=== PATIENT | female | born 1955 | race Two or more races ===

== ENCOUNTER 2025-09-03 07:34 | Emergency (ER) | payer MEDICAID, SELFPAY ==
[2025-09-03 07:44] VITALS: BP 149/77; PULSE 119; RESP 18; TEMP 36.8; O2SAT 95
[2025-09-03 07:51] VITALS: BMI 35.5
--- NOTE | 2025-09-03 08:02 | PD.EDRME ---
Rapid Medical Screening Exam RME Arrival date/time: 09/03/25 07:34 Chief Complaint: Skin/Abscess/Foreign Body Vital signs: Vital Signs Temperature 98.2 F 09/03/25 07:44 Pulse Rate 119 H 09/03/25 07:44 Respiratory Rate 18 09/03/25 07:44 Blood Pressure 149/77 H 09/03/25 07:44 Pulse Oximetry (%) 95 09/03/25 07:44 Oxygen Delivery Method Room Air 09/03/25 07:44 Vital signs reviewed by provider: Yes RME Narrative: 70-year-old female presents to the ER complaining of nonhealing right upper back wound x 1 month after her PMD performed an I&D and gave her some antibiotics which she completed the course of 3 weeks ago. I briefly performed a screening evaluation to initiate work-up and expedite care. Complete history, physical exam, and plan of care is deferred to the provider in the main ED.
--- NOTE | 2025-09-03 08:08 | EDNOTE_ITS ---
<Statement entered by Rut Olivier MD - 09/03/25 09:57> As co-signing physician, I was present and evaluated patient with Resident. Wound per family is slowing getting smaller with daily dressing changes at home. Looking at the ound, at about the 3 o'clock position, there is small amount of thick whitish material consistent with sebaceous material, as well as very small amount of purulent material expressed. Consistent with likely sebaceous cyst that had become infected, opened, and drained. Appearance of the wound now does not appear acutely infected - is open which allows drainage. Discussed wound care for home as well as potential follow up with surgeon in the future if this were to recur for removal of cyst. I concur with the plan and care as documented by the Resident ED General RME/HPI General Chief complaint: Skin/Abscess/Foreign Body Stated complaint: ACNE LOOKING ABSCESS ON BACK FOR 1 MONTH Time Seen by Provider: 09/03/25 08:07 Arrival date/time: 09/03/25 07:34 RME / HPI RME / HPI narrative: Rolando is a 70 y/o female with PMHx obesity who comes in for evaluation of a slowly healing wound located on her mid right thoracic spine, 3 x 2 cm, with no associated fever or chills, has been draining serous fluid but no pus or blood. Patient reports she is unsure how she got this wound, however about a month ago it had started draining on its own and she was to get evaluated at the doctor. Since it had already been draining, they proceeded with wound care and she completed a prescription of antibiotics, amoxicillin in which she took as prescribed. She says since then they have been continuing with wound care every day and that has been closing slowly on its own. They deny any pus or blood being drained from the wound. She has never had this before. She says it is n ot tender to touch and denies any fever or chills. She is wondering if she is going to get an antibiotic for it. She has not seen wound care or a general surgeon for this. No other complaints at this time. Related Data Previous Rx's ?Medication ?Instructions ?Recorded amoxicillin 500 mg capsule 500 mg PO TID #30 caps 12/11 ascorbic acid (vitamin C) 500 mg 500 mg PO BID 2 weeks #28 tabs 09/03/25 tablet multivitamin 1 tab PO QDAY 2 weeks #14 ta bs 09/03/25 zinc sulfate 50 mg zinc (220 mg) 50 mg PO QDAY #14 tab s 09/03/25 tablet Allergies Allergy/AdvReac Type Severity Reaction Status Date / Time No Known Allergies Allergy Verified 09/03/25 07:40 Review of Systems Review of Systems Narrative Review of Systems: 12 point ROS reviewed and is otherwise negative unless stated directly in the HPI ED Exam Narrative Physical exam: General: AAOx3, NAD, obese female HEENT: Moist mucous membranes, conjunctiva clear, EOMI, PERRLA, Cardiovascular: S1, S2, radial pulses +2 bilat, RRR Pulmonary: CTAB bilat no cough, no wheezing GI: No tenderness to light or deep palpitation, no guarding, rigidity, rebound tenderness or distension Back: 3x2 open wound, draining serous fluid, upon cleaning of wound, white discharge coming from wound, not TTP, not warm to touch Extremities: No presence of trace or pitting edema in lower extremities bilaterally, dorsalis pedis pulses +2 bilaterally Neuro: AAOx3, no focal motor or sensory deficits in the UE or LE bilat Psych: Good judgement, thought and behavior Course Quality Measures none Orders Category Date Time Status CBC Stat Lab 09/03/25 09:58 Ordered CMP [Comprehensive Metabolic Panel] Stat Lab 09/03/25 08:05 Ordered Vital Signs Vital signs: Vital Signs Temperature 98.2 F 09/03/25 07:44 Pulse Rate 119 H 09/03/25 07:44 Respiratory Rate 18 09/03/25 07:44 Blood Pressure 149/77 H 09/03/25 07:44 Pulse Oximetry (%) 95 09/03/25 07:44 Oxygen Delivery Method Room Air 09/03/25 07:44 Discharge Plan Plan Patient Disposition: HOME (Self Care) Patient condition on transfer: Stable Prescriptions/Referrals Prescriptions/Med Rec: New zinc sulfate 50 mg zinc (220 mg) tablet 50 mg PO QDAY Qty: 14 0RF Rx Instructions: Take one tablet by mouth every day multivitamin Tablet 1 tab PO QDAY 14 Days Qty: 14 0RF Rx Instructions: Take one tablet by mouth every day ascorbic acid (vitamin C) 500 mg tablet 500 mg PO BID 14 Days Qty: 28 0RF Rx Instructions: Take one tablet by mouth twice a day No Action amoxicillin 500 mg capsule 500 mg PO TID Qty: 30 0RF Referrals: Dave Torre [Physician, Wound Care] - In 1 week Fabby Tracey MD [Primary Care Provider] - In 1 week Amy Olguin MD [Physician, General Surgery] - In 1 week Problem List Clinical Impression: Abscess of skin or subcutaneous tissue Patient/Caregiver Discharge Instructions Discharge Activity: activity as tolerated Education Materials: Changing Dressing Dc, Wound Care Dc, Wound Dressing Change Steps Additional Instructions: Discharge instructions Follow-up with your PCP within 1 week I am prescribing you with Vitamins: A multivitamin, Zinc and Vitamin C. Take as prescribed I am referring you to wound care. You may need your primary care doctor to send a referral to you. I am referring you to a general surgeon. You may need your primary care doctor to send a referral to you. This is primarily for if your wound does not continue to heal. Speak with your PCP in regards to this. Continue with wound care as we discussed. Utilize clean dressings, gauze, and packings If you begin to develop a fever, please return to the ER. Return to ED if your symptoms worsen or return Descargar instrucciones Consulte con calderon m?dico de cabecera en tiago semana. Le estoy recetando vitaminas: un multivitam?nadia, zinc y vitamina C. T?melas seg?n lo prescrito. Le estoy derivando a un centro de cuidado de heridas. Es posible que calderon m?dico de cabecera le env?e tiago derivaci?n. Le estoy derivando a un cirujano general. Es posible que calderon m?dico de cabecera le env?e tiago derivaci?n. [place] es principalmente para casos en los que calderon herida no cicatriza. Hable con calderon m?dico de cabecera al respecto. Contin?e con el cuidado de la herida omid lo comentamos. Use ap?sitos, gasas y compresas limpias. Si empieza a tener fiebre, regrese a urgencias. Regrese a urgencias si kike s?ntomas empeoran o reaparecen. Print Language: Tajik Stand Alone Forms: [employer] Award Info., Patient Portal Info Letter MDM Narrative MDM hospital course (for use when minimal MDM required): 905: After wound care of patient's wound which including cleaning and pus drainage of wound, dressing was applied to wound. At this time, this is likely related to chronic wound that needs daily wound care for proper closure that will improve over time. This wound could of represented a cyst, however since it is improving at this time, pt will need close monitoring of this. If the wound continues to reaccumulate, patient will likely need evaluation by general surgeon for further intervention. Patient will need continuous wound care for proper closure. We will also refer her to wound care and a general surgeon however, she may need a referral from her primary care doctor. She is tachycardic at this time but appears to be regular. She will not need antibiotic at this time, however will give her wound healing supplements as well upon discharge. Diagnosis Diagnoses ruled out and/or further discussions: Chronic wound, cyst, healing abscess, cellulitis
[2025-09-03 09:16] LABS: Basophils # (Auto) 0.0 Thou/mm3 (0.0-0.2); Basophils % (Auto) 1 % (0-2.5); Eosinophils # (Auto) 0.0 Thou/mm3 (0.0-0.5); Eosinophils % (Auto) 0 % (0-10); Hematocrit 24.8 % (36.0-46.0); Immature Granulocytes Auto 0.03 Thou/mm3 (0.00-0.00); Lymphocytes # (Auto) 0.8 Thou/mm3 (1.0-4.8); Lymphocytes % (Auto) 12 % (10-50); Mean Corpuscular HGB Conc 31.5 g/dl (31.0-37.0); Mean Corpuscular Hemoglobin 28.6 pg (25.0-35.0); Mean Corpuscular Volume 91 fL (80-100); Monocytes # (Auto) 1.0 Thou/mm3 (0.0-0.8); Monocytes % (Auto) 17 % (0-12); Neutrophils # (Auto) 4.3 Thou/mm3 (1.8-7.7); Neutrophils % (Auto) 70 % (37-80); Nucleated Red Blood Cell # 0.00 Thou/mm3 (0.00-0.00); Nucleated Red Blood Cell % 0 /100 WBC (0); Platelet Count 185 Thou/mm3 (140-440); RDW Standard Deviation 66.7 fL (36.4-46.3); Red Blood Count 2.73 Miln/mm3 (4.00-5.20); White Blood Count 6.1 Thou/mm3 (3.6-11.0)
[2025-09-03 09:26] LABS: Hemoglobin 7.8 g/dL (12.0-16.0)
[2025-09-03 09:30] LABS: Alanine Aminotransferase 18 U/L (10-49); Albumin, Serum 3.5 gm/dL (3.4-4.8); Albumin/Globulin Ratio 1.2 (1.2-2.2); Alkaline Phosphatase 118 U/L (46-116); Anion Gap 12 (7-16); Aspartate Amino Transferase 29 U/L (0-34); BUN/Creatinine Ratio 17 Ratio (12-20); Bilirubin,Total 1.7 mg/dL (0.3-1.2); Blood Urea Nitrogen 10 mg/dL (9-23); Calcium 8.9 mg/dL (8.3-10.6); Calcium (Corrected) 9.3 mg/dL (8.5-10.1); Carbon Dioxide 25.5 mMol/L (20.0-31.0); Chloride 98 mMol/L (98-107); Creatinine (Component) 0.6 mg/dL (0.6-1.3); Estimated Creatinine Clearance 88.7 mL/min (>60); Globulin 3.0 gm/dL (2.3-3.5); Glucose 236 mg/dL (74-106); Osmolality,Calculated 277 (275-295); Potassium 3.8 mMol/L (3.4-5.1); Sodium 135 mMol/L (136-145); Total Protein 6.5 gm/dL (5.7-8.2); eGFR > 60 See Note
== END 2025-09-03 10:08 | disposition home or self-care (01) ==
PROVIDERS: Physician Assistant; PCP Family Medicine
DX: L02.212 Cutaneous abscess of back [any part, except buttock and flank] (principal); E66.9 Obesity, unspecified
CPT/HCPCS: 36415; 80053; 85025; 99283

== ENCOUNTER 2025-09-18 13:25 | Emergency (ER) | payer MEDICAID, SELFPAY ==
[2025-09-18 13:28] VITALS: BMI 38.0
[2025-09-18 13:39] VITALS: BP 152/83; PULSE 109; RESP 20; TEMP 36.7; O2SAT 96
--- NOTE | 2025-09-18 13:44 | XR_ITS ---
EXAMINATION: AP lateral chest 2 views TECHNIQUE: Upright AP lateral chest 2 views Date and time: September 18, 2025, 1402 hours INDICATIONS: Chest pain beginning today. FINDINGS: Normal heart size Lungs are clear. The osseous factors are intact IMPRESSION: No active disease
--- NOTE | 2025-09-18 13:44 | PD.EDRME ---
Rapid Medical Screening Exam [facility] Arrival date/time: 09/18/25 13:25 70-year-old female with no known medical history presents to the emergency room with a chief complaint of bilateral lower extremity swelling and left upper arm swelling x 6 days I have greeted and performed a focused initial assessment of this patient. A comprehensive ED assessment and evaluation of the patient, analysis of all test results, and completion of the medical decision making process will be conducted by additional ED providers. Chief Complaint: Extremity Problem,Nontraumatic Time Seen by Provider: 09/18/25 13:39 Vital signs: Vital Signs Temperature 98.0 F 09/18/25 13:39 Pulse Rate 109 H 09/18/25 13:39 Respiratory Rate 20 09/18/25 13:39 Blood Pressure 152/83 H 09/18/25 13:39 Pulse Oximetry (%) 96 09/18/25 13:39 Oxygen Delivery Method Room Air 09/18/25 13:39 Vital signs reviewed by provider: No Exam: Bilateral +2 pitting edema to the lower extremities +2 pitting edema to the upper left extremity Clear bilateral lung sounds Strong and regular rhythm S1 and S2 noted Clinical Impression: Congestive heart failure/renal failure/bilateral lower edema
[2025-09-18 14:08] LABS: Basophils # (Auto) 0.0 Thou/mm3 (0.0-0.2); Basophils % (Auto) 1 % (0-2.5); Eosinophils # (Auto) 0.0 Thou/mm3 (0.0-0.5); Eosinophils % (Auto) 0 % (0-10); Hematocrit 25.7 % (36.0-46.0); Immature Granulocytes Auto 0.03 Thou/mm3 (0.00-0.00); Lymphocytes # (Auto) 0.8 Thou/mm3 (1.0-4.8); Lymphocytes % (Auto) 15 % (10-50); Mean Corpuscular HGB Conc 30.0 g/dl (31.0-37.0); Mean Corpuscular Hemoglobin 28.4 pg (25.0-35.0); Mean Corpuscular Volume 95 fL (80-100); Monocytes # (Auto) 1.0 Thou/mm3 (0.0-0.8); Monocytes % (Auto) 20 % (0-12); Neutrophils # (Auto) 3.2 Thou/mm3 (1.8-7.7); Neutrophils % (Auto) 64 % (37-80); Nucleated Red Blood Cell # 0.00 Thou/mm3 (0.00-0.00); Nucleated Red Blood Cell % 0 /100 WBC (0); Platelet Count 170 Thou/mm3 (140-440); RDW Standard Deviation 70.2 fL (36.4-46.3); Red Blood Count 2.71 Miln/mm3 (4.00-5.20); White Blood Count 5.0 Thou/mm3 (3.6-11.0)
[2025-09-18 14:09] LABS: Hemoglobin 7.7 g/dL (12.0-16.0)
[2025-09-18 14:23] LABS: INR 1.3 (0.9-1.3); Partial Thromboplastin Time 27.7 Seconds (22.0-36.0); Prothrombin Time 13.5 Seconds (9.0-12.2)
[2025-09-18 14:27] LABS: Alanine Aminotransferase 12 U/L (10-49); Albumin, Serum 3.4 gm/dL (3.4-4.8); Albumin/Globulin Ratio 1.1 (1.2-2.2); Alkaline Phosphatase 140 U/L (46-116); Anion Gap 12 (7-16); Aspartate Amino Transferase 27 U/L (0-34); BUN/Creatinine Ratio 13 Ratio (12-20); Bilirubin,Total 1.5 mg/dL (0.3-1.2); Blood Urea Nitrogen 10 mg/dL (9-23); Calcium 8.9 mg/dL (8.3-10.6); Calcium (Corrected) 9.4 mg/dL (8.5-10.1); Carbon Dioxide 26.3 mMol/L (20.0-31.0); Chloride 96 mMol/L (98-107); Creatinine (Component) 0.8 mg/dL (0.6-1.3); Estimated Creatinine Clearance 63.8 mL/min (>60); Globulin 3.0 gm/dL (2.3-3.5); Glucose 325 mg/dL (74-106); Magnesium 1.8 mg/dL (1.6-2.6); Osmolality,Calculated 280 (275-295); Potassium 3.3 mMol/L (3.4-5.1); Sodium 134 mMol/L (136-145); Total Protein 6.4 gm/dL (5.7-8.2); Troponin I < 0.002 ng/mL (0.0-0.045); eGFR > 60 See Note
[2025-09-18 14:34] LABS: B-Type Natriuretic Peptide 125 pg/mL (0-100)
--- NOTE | 2025-09-18 16:44 | PD.EDADULT ---
ED General RME/HPI General Chief complaint: Extremity Problem,Nontraumatic Stated complaint: LEFT ARM SWELLING x 5-6 DAYS, WAS ON ANTIBIOTIC Time Seen by Provider: 09/18/25 13:39 Arrival date/time: 09/18/25 13:25 Limitations: no limitations RME / HPI RME / HPI narrative: 09/18/25 13:25 70-year-old female with no known medical history presents to the emergency room with a chief complaint of bilateral lower extremity swelling and left upper arm swelling x 6 days I have greeted and performed a focused initial assessment of this patient. A comprehensive ED assessment and evaluation of the patient, analysis of all test results, and completion of the medical decision making process will be conducted by additional ED providers. DR. YI MAIN ED EVALUATION: 70 year old female with no stated medical history presents to the ED for evaluation of left arm swelling beginning 5 days ago. Not associated with pain. Additionally complains of bilateral leg weakness. Denies any history of similar arm swelling. Patients daughter mentioned 1 week ago the patient was evaluated here for a bump on her back that was treated. State the patient at that time was also started on a multivitamin, Vitamin C, and Zinc. Denies any fevers, chills, sweats, shortness of breath, chest pain. Exam: Bilateral +2 pitting edema to the lower extremities +2 pitting edema to the upper left extremity Clear bilateral lung sounds Strong and regular rhythm S1 and S2 noted Impression: Congestive heart failure/renal failure/bilateral lower edema Related Data Previous Rx's ?Medication ?Instructions ?Recorded amoxicillin 500 mg capsule 500 mg PO TID #30 caps 10/23/19 zinc sulfate 50 mg zinc (220 mg) 50 mg PO QDAY #14 tabs 09/03/25 tablet Allergies Allergy/AdvReac Type Severity Reaction Status Date / Time No Known Allergies Allergy Verified 09/18/25 13:29 Review of Systems Review of Systems Systems Reviewed: All systems reviewed, normal except as documented Past Medical History Social History SMOKING STATUS: Never smoker ED Exam General Limitations: Present no limitations General appearance: Present alert and in no apparent distress Head Head exam: Present atraumatic, normocephalic and normal inspection Eye Eye exam: Present normal appearance, PERRL and EOMI ENT ENT exam: Present normal exam, normal oropharynx and mucous membranes moist Neck Neck exam: Present normal inspection, full ROM and trachea midline Chest Chest inspection: Present normal inspection and symmetric chest wall rise Respiratory Respiratory exam: Present normal lung sounds bilaterally Cardiovascular Cardiovascular exam: Present regular rate, normal rhythm and normal heart sounds Abdominal Exam Abdominal exam: Present soft and normal bowel sounds Extremities Exam Extremities exam: Present other (Left upper extremity with 2-3+ edema to left arm forearm and hand, the hand edema is pitting ) Back Exam Back exam: Present normal inspection and full ROM Neurological Exam Neurological exam: Present alert, oriented X3 and CN II-XII intact Psychiatric Psychiatric exam: Present normal affect and normal mood Skin Skin exam: Present warm, dry, intact and normal color Course Quality Measures none Orders Category Date Time Status EKG (ED ONLY) *Do not use* NOW Care 09/18/25 13:44 Completed EKG (ED Only) Stat Exams 09/18/25 13:44 Ordered US venous doppler UE LT Stat Exams 09/18/25 16:52 Completed XR chest 2V Stat Exams 09/18/25 13:44 Completed B-Type Natriuretic Peptide Stat Lab 09/18/25 13:57 Completed CBC Stat Lab 09/18/25 13:57 Completed Comprehensive Metabolic Panel Stat Lab 09/18/25 13:57 Completed Magnesium Stat Lab 09/18/25 13:57 Completed Partial Thromboplastin Time Stat Lab 09/18/25 13:57 Completed Prothrombin Time with INR Stat Lab 09/18/25 13:57 Completed Troponin I Stat Lab 09/18/25 13:57 Completed Urinalysis, C/S if Indicated Stat Lab 09/18/25 16:43 Completed Urine Culture Stat Lab 09/18/25 16:43 Received Vital Signs Vital signs: Vital Signs Temperature 98.0 F 09/18/25 13:39 Pulse Rate 109 H 09/18/25 13:39 Respiratory Rate 20 09/18/25 13:39 Blood Pressure 152/83 H 09/18/25 13:39 Pulse Oximetry (%) 96 09/18/25 13:39 Oxygen Delivery Method Room Air 09/18/25 13:39 Pulse ox is 96% on room air which is adequate. Discharge Plan Prescriptions/Referrals Prescriptions/Med Rec: No Action amoxicillin 500 mg capsule 500 mg PO TID Qty: 30 0RF zinc sulfate 50 mg zinc (220 mg) tablet 50 mg PO QDAY Qty: 14 0RF Rx Instructions: Take one tablet by mouth every day Referrals: Ismael Tracey MD [Primary Care Provider, Family Practice] - In 1 week Problem List Clinical Impression: Left upper extremity swelling, Anemia Patient/Caregiver Discharge Instructions Print Language: Icelandic MDM Narrative Sign Out note: 1800: Patient signed out to Dr. Banks pending ultrasound and final disposition. [facility] hospital course (for use when minimal MDM required): Monica Beckett am scribing for and in the presence of Dr. Yi. Clinical Information Provided by: patient Medical Records reviewed [facility] Meds/Rx considered, not ordered None Labs/Rad/Tests considered, not ordered None Chronic Illness/Social Conditions which may negatively complicate care or outcome(s)-explain: None or not applicable Labs Labs: interpreted by me Imaging Imaging interpretation: interpreted by me Imaging Interpretation(s): Ordering Physician: Seevro Antoine Date of Service: 09/18/25 Procedure(s): XR chest 2V Accession Number(s): [id number] cc: Severo Antoine; Eliel Szymanski MD~ EXAMINATION: AP lateral chest 2 views TECHNIQUE: Upright AP lateral chest 2 views Date and time: September 18, 2025, 1402 hours INDICATIONS: Chest pain beginning today. FINDINGS: Normal heart size Lungs are clear. The osseous factors are intact IMPRESSION: No active disease Dictated By: Eliel Szymanski MD Signed By: <Electronically signed by Eliel Szymanski MD in OV> 09/18/25 1417 Diagnosis Diagnoses ruled out and/or further discussions: Left upper extremity swelling Anemia
--- NOTE | 2025-09-18 16:52 | XR_ITS ---
Examination: Duplex scan of the upper extremity, unilateral left Date and time of exam: September 18, 2025, 1714 hours INDICATIONS: Severe arm swelling and pain Technique: Duplex scan of the extremity veins using B-mode/grayscale imaging and Doppler spectral analysis and color flow Attention is directed to internal echogenicity, compression and augmentation involving these veins, color flow assessment, spectral analysis Findings: Positive for nonocclusive thrombus involving the distal brachial vein Positive for nonocclusive thrombus involving the superficial basilic vein Incidental note multiple left cervical lymph nodes lateral to the jugular vein, the largest 24 x 25 mm IMPRESSION: Positive for nonocclusive acute thrombus involving the distal brachial vein Positive for nonocclusive thrombus involving the superficial basilic vein Significant left cervical lymphadenopathy, consider CT soft tissue neck post intravenous contrast follow-up
[2025-09-18 16:58] LABS: Collection Type, Urine Clean Catch
[2025-09-18 17:14] LABS: Bacteria,Urine 1+; Bilirubin,Urine Negative (Negative); Blood,Urine Negative (Negative); Color,Urine Yellow (Lt Yel-Yel); Glucose, Urine 4+ (Negative); Ketones,Urine Negative (Negative); Leukocyte Esterase,Urine Positive (Negative); Nitrite,Urine Negative (Negative); PH,Urine 6.5 (5.0-7.0); Protein,Urine Trace (Neg - Trace); RBC,Urine 10 /hpf (0-3); Specific Gravity,Urine 1.028 (1.001-1.035); Squamous Epithelial Cell,Urine 10 /hpf (0-5); Urobilinogen,Urine 8.0 mg/dL (0.0-1.0); WBC,Urine 55 /hpf (0-5)
[2025-09-18 17:15] LABS: Culture Indicated,Urine Yes
[2025-09-18 17:16] LABS: Clarity,Urine Hazy (Clear/Hazy)
--- NOTE | 2025-09-18 18:58 | EDNOTE_ITS ---
Emergency Room Addendum Addendum Narrative: 1800: Care assumed from Dr. Kirkland (emergency physician). Past medical, surgical, social and family history reviewed. Vitals and home medications reviewed. Results and treatment plan discussed. I will assume the care of the patient at this time and will follow the patient, pending venous doppler US. The following addendum documentation note is intended to reflect any pending information, findings, or radiology results not included in the patient?s ini tial chart by the previous shift scribe. RADIOLOGY Venous Doppler Study: Findings: Positive for nonocclusive thrombus involving the distal brachial vein Positive for nonocclusive thrombus involving the superficial basilic vein Incidental note multiple left cervical lymph nodes lateral to the jugular vein, the largest 24 x 25 mm IMPRESSION: Positive for nonocclusive acute thrombus involving the distal brachial vein Positive for nonocclusive thrombus involving the superficial basilic vein Significant left cervical lymphadenopathy, consider CT soft tissue neck post intravenous contrast follow-up Soft Tissue Neck CT: Findings: The films are not centered properly Symmetrical nasopharynx oropharynx Bilateral carotid triangle lymph nodes, the largest on the left side 15 mm Symmetrical submandibular glands The larynx appears normal Thyroid lobes are not enlarged Normal epiglottis Multiple supraclavicular lymph nodes on the left, the largest 17 mm IMPRESSION: Bilateral quadrangle lymph nodes, the largest on the left side 15 mm Multiple left supraclavicular lymph nodes, the largest 17 mm Chest CTA: Findings: Mass of left axillary lymphadenopathy Diffuse increased density in the left breast with edema and skin thickening, possible architectural distortion left breast, suspicious for 22 mm nodule left breast image 35 No thoracic aortic aneurysm dilatation Pulmonary artery segments are not enlarged. No paratracheal or tracheobronchial or bronchopulmonary adenopathy No pneumonia, pulmonary edema, pleural disease or pulmonary nodules Gallbladder wall appears mildly thickened No visualized liver lesion or pancreatic mass Moderate thoracic spondylosis IMPRESSION: Prominent left axillary adenopathy Diffuse increased density in the left breast with edema and possible architectural distortion, and skin thickening Suspicious for 22 mm nodule left breast Recommend diagnostic mammography and bilateral breast sonography follow-up 19:35 - Assumed care of this pleasant 70 y/o female presenting with aggressive LUE swelling for approximately 24 hours duration with generalized weakness/fatigue. No antecedent fever, chills, vomiting, or diarrhea. Laboratory markers demonstrate normal WBC. Patient with chronic anemia with hemoglobin of 7.7, normal platelet count, with no left shift or associated bandemia. Serum chemistries demonstrate slightly low Potassium of 3.3, mildly elevated Total bilirubin of 125, and BNP of 125. UA with equivocal evidence of UTI. Special studies include LUE DVT studies non-occlusive thrombus of both brachial and basilic veins. Patient also noted to have significant left cervical lymphadenopathy. These findings discussed with patient as Eliquis was initiated. Will obtain a soft tissue cervical CT and include chest CT with contrast. 22:28 - Soft tissue cervical CT and chest CT with contrast demonstrate multiple supraclavicular lymphadenopathy and presence left breast mass highly suggestive of breast CA with coagulopathy. Will continue Eliquis and refer to PHYSICAL THERAPY PROFESSOR for mammography vs MRI to further delineate left breast mass. I have spoken with the patient and discussed today?s findings, in addition to providing specific details for the plan of care. Questions are answered and there is an agreement with the plan. Re-assessment at the time of disposition demonstrates that the patient is in no acute distress. The patient has remained stable throughout the entire ED visit and is without objective evidence for acute process requiring urgent intervention or hospitalization. The patient is stable for discharge; counseling is provided and documented as above, discussed symptomatic treatment and specific conditions for return.
--- NOTE | 2025-09-18 19:24 | XR_ITS ---
Examination: CT soft tissue neck, with intravenous contrast. 2-D coronal reconstructions. 2-D sagittal reconstructions. Date and time of exam : September 18, 2025, 2026 hours INDICATIONS: Left arm swelling and pain this week., Marked abnormal axillary lymphadenopathy CTDI: vol (mGy): 16.2 DLP: (mGycm): 302 Technique: 1.25 mm axial sections of the neck of the obtained. Coronal and sagittal reconstructions have been obtained. Intravenous contrast administered 60 cc Isovue-370. Low dose protocols were performed. One or more of the following dose reduction techniques were used; automated exposure control, adjustment of the mA and/or KV according to patient size, use of iterative reconstruction technique. Findings: The films are not centered properly Symmetrical nasopharynx oropharynx Bilateral carotid triangle lymph nodes, the largest on the left side 15 mm Symmetrical submandibular glands The larynx appears normal Thyroid lobes are not enlarged Normal epiglottis Multiple supraclavicular lymph nodes on the left, the largest 17 mm IMPRESSION: Bilateral quadrangle lymph nodes, the largest on the left side 15 mm Multiple left supraclavicular lymph nodes, the largest 17 mm
--- NOTE | 2025-09-18 19:27 | XR_ITS ---
Examination: CT chest with intravenous contrast 2-D sagittal and coronal reconstructions Exam date and time: September 18, 2025, 2036 hours INDICATIONS: Left arm swelling and pain this week CTDI:vol (mGy) 33.0 DLP: (mGycm) 1027 Technique: Multiple axial sections of the thorax have been obtained. Sections have been obtained, 3 mm slice thickness. Mediastinal and lung density settings have been obtained. Intravenous contrast administered, 60 cc Isovue-370. 2-D sagittal, coronal images obtained. Low dose protocols were performed. One or more of the following dose reduction techniques were used; automated exposure control, adjustment of the mA and/or KV according to patient size, use of iterative reconstruction technique. Findings: Mass of left axillary lymphadenopathy Diffuse increased density in the left breast with edema and skin thickening, possible architectural distortion left breast, suspicious for 22 mm nodule left breast image 35 No thoracic aortic aneurysm dilatation Pulmonary artery segments are not enlarged. No paratracheal or tracheobronchial or bronchopulmonary adenopathy No pneumonia, pulmonary edema, pleural disease or pulmonary nodules Gallbladder wall appears mildly thickened No visualized liver lesion or pancreatic mass Moderate thoracic spondylosis IMPRESSION: Prominent left axillary adenopathy Diffuse increased density in the left breast with edema and possible architectural distortion, and skin thickening Suspicious for 22 mm nodule left breast Recommend diagnostic mammography and bilateral breast sonography follow-up
[2025-09-18 19:32] VITALS: BP 159/81; PULSE 130; RESP 19; TEMP 37.3; O2SAT 98
[2025-09-18] MEDS: APIXABAN 2.5 MG TABLET 10 MG PO (20:35)
[2025-09-18 23:02] VITALS: BP 150/79; PULSE 99; RESP 19; TEMP 37.3; O2SAT 98
== END 2025-09-18 23:03 | disposition home or self-care (01) ==
PROVIDERS: Nurse Practitioner Family; Emergency Provider Emergency Medicine; PCP Family Medicine
DX: R59.0 Localized enlarged lymph nodes (principal); D64.9 Anemia, unspecified; E87.6 Hypokalemia; N39.0 Urinary tract infection, site not specified
CPT/HCPCS: 36415; 70491; 71046; 71260; 80053; 81001; 83735; 83880; 84484; 85025; 85610; 85730; 87086; 93005; 93971; 99283; A4649; Q9967; A9270

== ENCOUNTER 2025-10-25 15:25 | Emergency (ER) | payer MEDICAID, SELFPAY ==
[2025-10-25] VITALS (11 sets, daily range): BP systolic 100–147; BP diastolic 62–80; PULSE 97–176; RESP 19–30; TEMP 36.6–40.3; O2SAT 93–99; BMI 33.9
--- NOTE | 2025-10-25 15:56 | EKG_ITS ---
[facility] Test Date: 2025-10-25 Pat Name: ANTOINETTE HURT Department: Room: - Gender: Female Professional Benefits Sales Consultant: : 1955 Requested By: Bridget Acosta Order Number: [id number] Reading MD: Bridget Acosta Measurements Intervals Warren Rate: 155 P: 56 PA: 102 QRS: 12 QRSD: 81 T: 26 QT: 276 QTc: 444 Interpretive Statements SINUS TACHYCARDIA WITH SHORT PA INTERVAL WITH OCCASIONAL SUPRAVENTRICULAR PREMATURE COMPLEXES, POSSIBLE ATRIAL FLUTTER NONSPECIFIC ST & T-WAVE ABNORMALITY CRITICAL TEST RESULT No previous ECG available for comparison /store/S0/[id number]/ecg/[id number].pdf
--- NOTE | 2025-10-25 15:59 | XR_ITS ---
EXAMINATION: AP chest single view TECHNIQUE: AP portable semiupright chest single view Date and time: October 25, 2025, 1625 hours, comparison September 18, 2025 INDICATION: Chest pain today. FINDINGS: No significant cardiac enlargement taking into account AP portable projection Ectatic thoracic aorta No lobar pneumonia or pulmonary edema Moderate osteopenia IMPRESSION: No pneumonia or pulmonary edema
--- NOTE | 2025-10-25 16:17 | EDNOTE_ITS ---
Altered Mental Status RME/HPI General Chief Complaint: Altered Mental Status Stated Complaint: AMS Time Seen by Provider: 10/25/25 16:02 Arrival date/time: 10/25/25 15:25 RME / HPI RME / HPI narrative: 70 year old female presents to the ED BIBA from home for altered mental status today. Per medics, family on scene reported the patient was last known well at 13:45 hours today. Medics report patient is tachycardic in the 110s and hot to touch, saturating 98% on 4L nasal cannula. In the ED, patient is unable to provide any additional history due to mental status. Related Data Previous Rx's ?Medication ?Instructions ?Recorded amoxicillin 500 mg capsule 500 mg PO TID #30 caps 12/11 zinc sulfate 50 mg zinc (220 mg) 50 mg PO QDAY #14 tab s 09/03/25 tablet acetaminophen 300 mg-codeine 15 mg 1 tab PO Q8H PRN pa in #14 tabs 09/18/25 tablet apixaban 5 mg (74 tabs) tablets in 5 mg PO BID #74 tab s 09/18/25 a dose pack (Eliquis DVT-PE Treat 30D Start) Allergies Allergy/AdvReac Type Severity Reaction Status Date / Time No Known Allergies Allergy Verified 09/18/25 13:29 Review of Systems Review of Systems ROS Unobtainable: unobtainable due to mental status Past Medical History Past Medical History CARDIAC: Negative Cardiac Disorders RESPIRATORY: Negative Asthma GENITOURINARY: Negative Renal Disease ENDOCRINE: Negative Diabetes Mellitus Type 2 HEMATOLOGIC: Negative Sickle Cell Disease Social History SMOKING STATUS: Unknown if ever smoked ED Exam Narrative Physical exam: GENERAL APPEARANCE: Mildly altered, well-developed, well-nourished HEENT: Normocephalic, atraumatic; pupils equal, round, reactive to light; EOMI; mucous membranes pink, moist; oropharynx clear NECK: Supple LUNGS: CTABL; no wheezes, no rales, no rhonchi HEART: Regular rate, regular rhythm; normal S1, S2; no murmurs ABDOMEN: non distended; normal BS; soft, no tenderness, no guarding, no rebound; no masses, no organomegaly, no hernia EXTREMITIES: atraumatic; no edema NEUROLOGIC: mildly altered, cranial nerves II-XII grossly intact SKIN: Increased warmth, diaphoretic, normal color; no rashes Course Quality Measures Current suspected stage: septic shock (LA >4 and/or hypotension) Sepsis reassessment completed at (date): 10/25/25 Sepsis reassessment completed at (time): 17:00 Possible source: genitourinary Blood cultures ordered: completed in ED Antibiotic ordered: Yes Pertinent labs: 10/25/25 10/25/25 10/25/25 16:23 19:10 22:43 Lactic Acid 4.9 H* mMol/L 2.8 H mMol/L 2.4 H mMol/L (0.4-2.0) (0.4-2.0) (0.4-2.0) Procalcitonin 5.91 H ng/ml (0.0-0.49) sepsis Orders Category Date Time Status CT Screening NOW Care 10/25/25 17:58 Completed Cutting Machine Tender Decorative NOW Care 10/25/25 15:59 Completed EKG (ED ONLY) *Do not use* NOW Care 10/25/25 15:[address] abdomen pelvis w con Stat Exams 10/25/25 17:[address] head/brain wo con Stat Exams 10/25/25 16:35 Completed EKG (ED Only) Stat Exams 10/25/25 15:56 Draft US abdomen limited Stat Exams 10/25/25 17:50 Completed XR chest 1V portable Stat Exams 10/25/25 15:59 Completed B-Type Natriuretic Peptide Stat Lab 10/25/25 16:23 Completed Blood Culture (Lab) Stat Lab 10/25/25 16:17 Completed CBC Stat Lab 10/25/25 16:23 Completed Comprehensive Metabolic Panel Stat Lab 10/25/25 16:23 Completed Hepatitis Acute Panel Stat Lab 10/25/25 16:23 Completed Lactate (Lactic Acid) Stat Lab 10/25/25 16:23 Completed Lactic Acid [Lactate (Lactic Acid)] Stat Lab 10/25/25 19:10 Completed Lactic Acid, 3 HR Stat Lab 10/25/25 22:43 Completed Lipase Stat Lab 10/25/25 16:23 Completed Magnesium Stat Lab 10/25/25 16:23 Completed Partial Thromboplastin Time Stat Lab 10/25/25 16:23 Completed Procalcitonin Stat Lab 10/25/25 16:23 Completed Prothrombin Time with INR Stat Lab 10/25/25 16:23 Completed Troponin I Stat Lab 10/25/25 16:23 Completed Troponin I Stat Lab 10/25/25 19:10 Completed Troponin I Stat Lab 10/25/25 21:14 Completed Urinalysis Stat Lab 10/25/25 15:40 Completed Urine Culture Stat Lab 10/25/25 15:40 Completed Acetaminophen Ivpb [Ofirmev Inj] Med 10/25/25 15:59 Discontinued 1,000 mg in 100 ml IV X1 Cefepime Inj [Maxipime Inj] 2 gm Med 10/25/25 18:47 Discontinued SODIUM CHLORIDE 0.9% (Popper) [Ns 0.9% (P)] 50 ml IV X1 Sodium Chloride 0.9% 1000 ml [Ns] 1,000 ml Med 10/25/25 15:59 Discontinued IV 999 mls/hr Sodium Chloride 0.9% 1000 ml [Ns] 1,000 ml Med 10/25/25 18:01 Discontinued IV 999 mls/hr cefTRIAXone/D5w 1gm IV premix [Rocephin/D5w 1gm IV Med 10/25/25 17:49 Discontinued premix] 1 gm in 50 ml IV X1 metroNIDAZOLE/NS 500 MG IVPB [Flagyl 500 mg IV] Med 10/25/25 18:47 Discontinued 500 mg in 100 ml IV X1 Vital Signs Vital signs: Vital Signs Temperature 103.2 F H 10/25/25 15:26 Pulse Rate 160 H 10/25/25 15:26 Respiratory Rate 22 H 10/25/25 15:26 Blood Pressure 130/80 10/25/25 15:26 Pulse Oximetry (%) 93 L 10/25/25 15:26 Oxygen Delivery Method Room Air 10/25/25 15:26 Altered Mental Status MDM Narrative MDM Narrative:: 1800p: Care signed out to Dr. Medina pending GB US and final disposition. Patient data External records reviewed:: [facility] previous records and EMS form Clinical information provided by:: EMS Social determinants that could affect healthcare access:: none Patient has the following chronic illnesses:: Obesity How is presenting disease/condition affected by chronic disease/condition?: uneffected by Evaluation data The following diagnostics were reviewed and interpreted by me:: lab results and radiology exam(s) Lab and/or radiology exams considered but not ordered:: None Interpretation Summary: Ordering Physician: Bridget Gudino MD Date of Service: 10/25/25 Procedure(s): XR chest 1V portable Accession Number(s): [id number] cc: Eliel Szymanski MD; NO PRIMARY/FAMILY,PHYSICIAN; Bridget Gudino MD~ EXAMINATION: AP chest single view TECHNIQUE: AP portable semiupright chest single view Date and time: October 25, 2025, 1625 hours, comparison September 18, 2025 INDICATION: Chest pain today. FINDINGS: No significant cardiac enlargement taking into account AP portable projection Ectatic thoracic aorta No lobar pneumonia or pulmonary edema Moderate osteopenia IMPRESSION: No pneumonia or pulmonary edema Dictated By: Eliel Szymanski MD Signed By: <Electronically signed by Eliel Szymanski MD in OV> 10/25/25 1723 Ordering Physician: Bridget Gudino MD Date of Service: 10/25/25 Procedure(s): CT head/brain wo con Accession Number(s): [id number] cc: Eliel Szymanski MD; NO PRIMARY/FAMILY,PHYSICIAN; Bridget Gudino MD~ Examination: CT brain head without contrast. 2-D sagittal coronal reconstructions Date and time of exam: October 25, 2025, 1709 hours INDICATIONS: Onset altered mental status today CTDI: vol (mGy): 49.7 DLP: (mGycm): 936 Technique: Multiple CT axial sections of the brain have been obtained, 5 mm slice thickness. Contrast has not been administered. 2-D sagittal, coronal reconstructions have been obtained Low dose protocols were performed. One or more of the following dose reduction techniques were used; automated exposure control, adjustment of the mA and/or KV according to patient size, use of iterative reconstruction technique. Findings: No significant ventricular enlargement. 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 No mass effect or midline shift Basal cisterns are not remarkable. Fourth ventricle is midline. Cranial vault intact. Impression: Negative for acute hemorrhage, mass effect or midline shift Advise clinical correlation and follow-up accordingly Dictated By: Eliel Szymanski MD Signed By: <Electronically signed by Eliel Szymanski MD in OV> 10/25/25 1727 Medications / Prescriptions Medications or Prescriptions considered but not ordered:: none Medication administrations:: Medication Administration History Discontinued Medications Sodium Chloride (Ns) 1,000 mls @ 999 mls/hr IV .Q1H1M ONE Stop: 10/25/25 16:59 Last Infusion: 10/25/25 18:00 Dose: Infused Documented By: Admin: 10/25/25 16:23 Dose: 999 mls/hr Documented By: FELICIANO Acetaminophen (Ofirmev Inj) 1,000 mg in 100 mls @ 250 mls/hr IV X1 ONE Stop: 10/25/25 16:22 Last Infusion: 10/25/25 17:59 Dose: Infused Documented By: Admin: 10/25/25 16:22 Dose: 250 mls/hr Documented By: FELICIANO Ceftriaxone Sodium/Dextrose (Rocephin/D5w 1gm Iv Premix) 1 gm in 50 mls @ 100 mls/hr IV X1 ONE Stop: 10/25/25 18:18 Last Infusion: 10/25/25 19:55 Dose: Infused Documented By: Admin: 10/25/25 18:35 Dose: 100 mls/hr Documented By: FELICIANO Sodium Chloride (Ns) 1,000 mls @ 999 mls/hr IV .Q1H1M ONE Stop: 10/25/25 19:01 Last Infusion: 10/25/25 19:56 Dose: Infused Documented By: Admin: 10/25/25 18:36 Dose: 999 mls/hr Documented By: FELICIANO Cefepime HCl 2 gm/ Sodium (Chloride) 50 mls @ 100 mls/hr IV X1 ONE Stop: 10/25/25 19:16 Last Infusion: 10/25/25 20:29 Dose: Infused Documented By: Admin: 10/25/25 19:54 Dose: 100 mls/hr Documented By: MELISSA Metronidazole (Flagyl 500 Mg Iv) 500 mg in 100 mls @ 200 mls/hr IV X1 ONE Stop: 10/25/25 19:16 Last Infusion: 10/25/25 20:30 Dose: Infused Documented By: Admin: 10/25/25 20:00 Dose: 200 mls/hr Documented By: MELISSA see above Consultations Consultation(s) initiated? (list below): No Diagnosis Most likely diagnosis given after review of the tests above:: Sepsis AMS Admission Indicated Admission indicated?: not indicated Explain why admission is indicated or not indicated:: signed out pending final dispo Admission Request Was there a request for admission?: No Disposition Plan Disposition Plan: other (specify) (signed out pending final dispo ) Discharge Plan Prescriptions/Referrals Prescriptions/Med Rec: No Action amoxicillin 500 mg capsule 500 mg PO TID Qty: 30 0RF Eliquis DVT-PE Treat 30D Start 5 mg (74 tabs) tablets,dose pack 5 mg PO BID Qty: 74 0RF Rx Instructions: Sick 2 tablets twice daily for for 7 days then 1 tablet twice daily for remainder of pack. acetaminophen-codeine 300-15 mg tablet 1 tab PO Q8H MDD 3 tab PRN (Reason: pain) Qty: 14 0RF zinc sulfate 50 mg zinc (220 mg) tablet 50 mg PO QDAY Qty: 14 0RF Rx Instructions: Take one tablet by mouth every day Referrals: No Primary/Family,Physician [Primary Care Provider] - In 1 week Problem List Clinical Impression: Altered mental status, Sepsis Patient/Caregiver Discharge Instructions Print Language: Slovenian
[2025-10-25] MEDS: ACETAMINOPHEN IVPB 1,000 MG/100 ML VIAL 250 MG IV (16:22)
[2025-10-25] MEDS: SODIUM CHLORIDE 0.9% 1000 ML 1,000 ML 999 ML IV ×2 (16:23→18:36)
[2025-10-25 16:26] LABS: Collection Type, Urine Catheter; Squamous Epithelial Cell,Urine 0 /hpf (0-5)
[2025-10-25 16:35] LABS: Basophils # (Auto) 0.0 Thou/mm3 (0.0-0.2); Basophils % (Auto) 0 % (0-2.5); Eosinophils # (Auto) 0.0 Thou/mm3 (0.0-0.5); Eosinophils % (Auto) 0 % (0-10); Hematocrit 23.9 % (36.0-46.0); Immature Granulocytes Auto 0.08 Thou/mm3 (0.00-0.00); Lymphocytes # (Auto) 0.8 Thou/mm3 (1.0-4.8); Lymphocytes % (Auto) 9 % (10-50); Mean Corpuscular HGB Conc 30.5 g/dl (31.0-37.0); Mean Corpuscular Hemoglobin 30.0 pg (25.0-35.0); Mean Corpuscular Volume 98 fL (80-100); Monocytes # (Auto) 0.6 Thou/mm3 (0.0-0.8); Monocytes % (Auto) 7 % (0-12); Neutrophils # (Auto) 7.4 Thou/mm3 (1.8-7.7); Neutrophils % (Auto) 83 % (37-80); Nucleated Red Blood Cell # 0.11 Thou/mm3 (0.00-0.00); Nucleated Red Blood Cell % 1 /100 WBC (0); Platelet Count 111 Thou/mm3 (140-440); RDW Standard Deviation 76.1 fL (36.4-46.3); Red Blood Count 2.43 Miln/mm3 (4.00-5.20); White Blood Count 8.9 Thou/mm3 (3.6-11.0)
--- NOTE | 2025-10-25 16:35 | XR_ITS ---
Examination: CT brain head without contrast. 2-D sagittal coronal reconstructions Date and time of exam: October 25, 2025, 1709 hours INDICATIONS: Onset altered mental status today CTDI: vol (mGy): 49.7 DLP: (mGycm): 936 Technique: Multiple CT axial sections of the brain have been obtained, 5 mm slice thickness. Contrast has not been administered. 2-D sagittal, coronal reconstructions have been obtained Low dose protocols were performed. One or more of the following dose reduction techniques were used; automated exposure control, adjustment of the mA and/or KV according to patient size, use of iterative reconstruction technique. Findings: No significant ventricular enlargement. 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 No mass effect or midline shift Basal cisterns are not remarkable. Fourth ventricle is midline. Cranial vault intact. Impression: Negative for acute hemorrhage, mass effect or midline shift Advise clinical correlation and follow-up accordingly
[2025-10-25 16:42] LABS: Bacteria,Urine 4+; Bilirubin,Urine 1+ (Negative); Blood,Urine Negative (Negative); Color,Urine Yellow (Lt Yel-Yel); Glucose, Urine Negative (Negative); Hyaline Casts,Urine 2 /hpf (0-1); Ketones,Urine Negative (Negative); Leukocyte Esterase,Urine Positive (Negative); Nitrite,Urine Positive (Negative); PH,Urine 6.5 (5.0-7.0); Protein,Urine 1+ (Neg - Trace); RBC,Urine 2 /hpf (0-3); Specific Gravity,Urine 1.015 (1.001-1.035); Urobilinogen,Urine 8.0 mg/dL (0.0-1.0); WBC,Urine 29 /hpf (0-5)
[2025-10-25 16:45] LABS: INR 1.5 (0.9-1.3); Partial Thromboplastin Time 32.1 Seconds (22.0-36.0); Prothrombin Time 15.1 Seconds (9.0-12.2)
[2025-10-25 16:48] LABS: B-Type Natriuretic Peptide 101 pg/mL (0-100)
[2025-10-25 16:59] LABS: Lactate (Lactic Acid) 4.9 mMol/L (0.4-2.0)
[2025-10-25 17:00] LABS: Alanine Aminotransferase 35 U/L (10-49); Albumin, Serum 2.9 gm/dL (3.4-4.8); Albumin/Globulin Ratio 1.0 (1.2-2.2); Alkaline Phosphatase 733 U/L (46-116); Anion Gap 13 (7-16); Aspartate Amino Transferase 174 U/L (0-34); BUN/Creatinine Ratio 18 Ratio (12-20); Bilirubin,Total 3.5 mg/dL (0.3-1.2); Blood Urea Nitrogen 11 mg/dL (9-23); Calcium 8.8 mg/dL (8.3-10.6); Calcium (Corrected) 9.7 mg/dL (8.5-10.1); Carbon Dioxide 24.3 mMol/L (20.0-31.0); Chloride 99 mMol/L (98-107); Creatinine (Component) 0.6 mg/dL (0.6-1.3); Globulin 2.9 gm/dL (2.3-3.5); Glucose 183 mg/dL (74-106); Lipase 39 U/L (12-53); Magnesium 1.7 mg/dL (1.6-2.6); Osmolality,Calculated 276 (275-295); Potassium 3.2 mMol/L (3.4-5.1); Procalcitonin 5.91 ng/ml (0.0-0.49); Sodium 136 mMol/L (136-145); Total Protein 5.8 gm/dL (5.7-8.2); eGFR > 60 See Note
[2025-10-25 17:12] LABS: Troponin I 0.051 ng/mL (0.0-0.045)
[2025-10-25 17:19] LABS: Clarity,Urine Hazy (Clear/Hazy)
[2025-10-25 17:19] LABS: Hemoglobin 7.3 g/dL (12.0-16.0)
--- NOTE | 2025-10-25 17:50 | XR_ITS ---
Examination: Abdomen sonogram, Limited Date and time of exam: October 25, 2025, 1820 hours INDICATIONS: Right upper abdominal pain beginning 2 days ago, elevated liver function test on laboratory examination today. Technique: Real-time marc scale transabdominal sonographic images of the upper abdomen obtained. Findings: Gallbladder sludge Gallbladder wall 0.51 cm with edema Common bile duct enlarged 0.8 cm no stones Pancreatic head 2.1 cm Liver 15.8 cm fatty infiltration Normal hepatopetal portal venous flow Patent IVC IMPRESSION: Findings consistent with acute acalculous cholecystitis, consider MRCP follow-up
--- NOTE | 2025-10-25 17:58 | XR_ITS ---
Examination: CT abdomen with intravenous contrast CT pelvis with intravenous contrast 2-D coronal reconstructions 2-D sagittal reconstructions Date and time of exam: October 25, 2025, 1919 hours INDICATIONS: Generalized abdominal pain today. CTDI: vol (mGy) 11.3 DLP: (mGycm) 635 Technique: Multiple axial sections of the abdomen and pelvis have been obtained. 64 slice high-resolution scanner used. 3 mm axial sections have been obtained, post intravenous injection 60 cc [id number] 2-D sagittal, coronal reconstructions obtained. Low dose protocols were performed. One or more of the following dose reduction techniques were used; automated exposure control, adjustment of the mA and/or KV according to patient size, use of iterative reconstruction technique. Findings: No focal liver or splenic lesions Gallbladder wall appears thickened No pancreatic or adrenal mass No renal or ureteral calculi Aorta is not enlarged Multiple left lateral para-aortic lymph nodes, the largest 14 mm Normal appendix No bowel obstruction or diverticulitis Multiple right common iliac internal iliac external iliac lymph nodes, the largest 3.3 cm and 2.5 cm Right common femoral lymph node mass 10 cm with adjacent multiple lymph node masses Atrophic retroverted uterus with abnormally thickened endometrial stripe measuring up to 13 mm Severe osteopenia IMPRESSION: Acute acalculous cholecystitis Extensive pathologic abdominal and right pelvic lymphadenopathy, differential would include metastatic lymphadenopathy, Hodgkin's disease, non-Hodgkin's lymphoma, amenable to CT-guided percutaneous biopsy Abnormal thickening of the endometrial stripe, differential would include malignant neoplasm of the endometrium, recommend MRI pelvis follow-up pre and postcontrast
[2025-10-25] MEDS: cefTRIAXone/D5w 1gm IV premix 1 GM/50 ML BAG IV (18:35)
--- NOTE | 2025-10-25 18:39 | PD.EDADDENDU ---
Emergency Room Addendum <Damian Vallejo MD - Last Filed: 10/25/25 19:26> Addendum Narrative: HPI: 70-year-old female with past medical history of left breast mass, pulmonary nodules, left arm blood clot on Eliquis presenting to the ED on 10/25 with altered mental status and high fevers. History largely taken from patient's daughter who is bedside and states that the patient unfortunately has never had a screening colonoscopy or mammograms in the past. On August she presented to the ED where the blood clot in her left arm was seen; she was started on Eliquis. She was seen by her PCP who sent her to a vascular/vein specialist due to left arm swelling and not improving. Patient denies any alcohol use but apparently earlier today started to develop some altered mental status and did not appear well. Her skin color has also been changing progressively turning more yellow. On assessment, patient is awake answering questions appropriately in Albanian. Her vitals have improved since presenting with a blood pressure 114/67 but steadily dropping, heart rate continues to be tachycardic at 108, respiratory 24, afebrile after receiving Tylenol 1000 mg. She is severely jaundiced and has conjunctival pallor. Heart and lung sounds largely unremarkable, abdominal exam notable for distention, organomegaly noted but patient denies having any abdominal tenderness on deep palpation, borborygmi apparent. Left upper extremity is grossly swollen compared to right the patient is able to ambulate extremities and there is good cap refill, less than 2 seconds. Lower extremities without any edema, cyanosis dorsalis pedis pulses +2 bilaterally. Laboratory workup confirms cholestatic process with elevated LFTs, T. bili Naldo 3.5 with AST 174, ALT 35, alk phos severely elevated 733. CBC does not show any white count elevation but patient is severely anemic with a hemoglobin of 7.3, thrombocytopenia with platelet of 111, lactic acid of 4.9, troponin 0.051. Urinalysis does show signs of infection with 4+ bacteria, positive leukocyte esterase and nitrites. Hepatitis panel ordered to rule out any acute hepatitis. Chest x-ray is largely negative, head CT is also negative secondary to the altered mental status and abdominal ultrasound does show acute acalculous cholecystitis with a common bile duct that is enlarged at 0.8 cm with no well-visualized stones. Differentials at this time include: Sepsis secondary to, urinary tract infection superimposed, acalculous cholecystitis, cholangitis, possible underlying malignancy including breast mass, pulmonary nodules Differentials for anemia include: Iron deficiency anemia, DIC, acute on chronic blood loss anemia on Eliquis, anemia of chronic disease due to liver disease, vitamin deficiency including folate or B12 #Sepsis secondary to urinary tract infection #L calculous cholecystitis #Concern for cholangitis #Anemia As stated above patient has sepsis secondary to UTI plus or minus high probability of cholangitis secondary to enlarged common bile duct, elevated T bilirubin and altered mental status Plan: Covering with broad-spectrum antibiotics, cefepime 2 g and Flagyl 500 mg IV fluid resuscitation Follow-up with acute hepatitis panel Follow-up on concerning lab findings including troponin, lactic acid CT abdomen pelvis with contrast ordered Attempted transfer to patient for ERCP Patient seen and assessed with attending Dr. Sun Vallejo DO PGY-2 Internal Medicine - GME Attestation <Yana Medina MD - Last Filed: 10/25/25 18:57> MD Attestation Patient was signed out to me at approximately 1900. Please see Dr. Montelongo's note for full history and physical exam and complete workup. This is a 70-year-old female who presents to the emergency department with temperature at home x 1 day. The patient has a history of CHF, and in the emergency department has a temperature of 103.2. Respiratory rate is 22. Pulse initially on arrival was 160. Sepsis reevaluation: At 1800 the patient has a blood pressure of 147/66, pulse of 109. Respirations of 25. Temperature of 104.6. Temp is 97. The patient otherwise is awake alert and talking in full sentences. Abdomen is soft nontender nondistended. Lungs are clear bilaterally. Patient has no wheezing. Patient is given 1 L and she is pending a second liter. Labs are reviewed and interpreted by me. White count is 8.9. Hemoglobin is 7.3/23. Platelets 111. Potassium is 3.2. Lactic acid is 4.9. Total bili is 3.5. AST is 174. AL T is 35. Alk phos is 733. Troponin is 0.051. BNP is 101. Lipase is 39. Procalcitonin is 5.91. Urinalysis shows 29 with 4+ bacteria, Patient will be getting a ultrasound since she has elevated liver function test. [facility] [address] [place] [address] [facility] Report Signed CXR INDICATION: Chest pain today. FINDINGS: No significant cardiac enlargement taking into account AP portable projection Ectatic thoracic aorta No lobar pneumonia or pulmonary edema Moderate osteopenia IMPRESSION: No pneumonia or pulmonary edema CT brain head without contrast. 2-D sagittal coronal reconstructions Findings: No significant ventricular enlargement. 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 No mass effect or midline shift Basal cisterns are not remarkable. Fourth ventricle is midline. Cranial vault intact. Impression: Negative for acute hemorrhage, mass effect or midline shift Advise clinical correlation and follow-up accordingly Assessment and plan patient has sepsis secondary to primary acute cholecystitis versus common bile duct stone versus pneumonia versus bacteremia.
[2025-10-25 19:19] LABS: Lactate (Lactic Acid) 2.8 mMol/L (0.4-2.0)
[2025-10-25 19:25] LABS: Reflex Lactate? Y
[2025-10-25 19:48] LABS: Troponin I 0.091 ng/mL (0.0-0.045)
[2025-10-25 19:52] LABS: Hepatitis A Antibody IgM Non Reactive (Non React); Hepatitis B Core Antibody IgM Non Reactive (Non React); Hepatitis B Surface Antigen Non Reactive (Non React); Hepatitis C Antibody Non Reactive (Non React)
[2025-10-25] MEDS: CEFEPIME INJ 2 GM in SODIUM CHLORIDE 0.9% (Popper) 50 ML IV (19:54)
[2025-10-25] MEDS: metroNIDAZOLE/NS 500 MG IVPB 500 MG/100 ML BAG 200 MG IV (20:00)
[2025-10-25 21:48] LABS: Troponin I 0.086 ng/mL (0.0-0.045)
--- NOTE | 2025-10-25 22:04 | PC.NURSE ---
SPOKE TO [facility] @[id number] ED TO ED REPORT TO BE CALLED TO [phone]
[2025-10-25 22:15] LABS: Reflex Lactate? Y
[2025-10-25 22:47] LABS: Lactic Acid, 3 HR 2.4 mMol/L (0.4-2.0)
== END 2025-10-25 23:04 | disposition home or self-care (01) ==
PROVIDERS: Emergency Medicine; Emergency Provider Emergency Medicine
DX: A41.9 Sepsis, unspecified organism (principal); N39.0 Urinary tract infection, site not specified; K80.42 Calculus of bile duct with acute cholecystitis without obstruction; R07.9 Chest pain, unspecified; D64.9 Anemia, unspecified; D69.6 Thrombocytopenia, unspecified; R79.89 Other specified abnormal findings of blood chemistry; Z75.1 Person awaiting admission to adequate facility elsewhere
CPT/HCPCS: 36415; 70450; 71045; 74177; 76705; 80053; 80074; 80320; 81001; 83605; 83690; 83735; 83880; 84145; 84484; 85025; 85610; 85730; 87040; 87086; 93005; 96365; 96366; 99285; A4649; J0131; J0692; J0696; J3490; J7030; J7050; Q9967; G0480; J1836